=== PATIENT | female | born 2000 | race Caucasian/White ===

== ENCOUNTER 2020-08-06 16:55 | Outpatient (CLI) | payer OTHER ==
[2020-08-06] MEDS ORDERED: PRENATAL TABLE1 EAC1 PO (18:11)
[2020-08-07] MEDS ORDERED: NIFEDIPINE ER30 M1 PO (07:35)
== END 2020-08-07 08:12 | disposition home or self-care (01) ==
LOC: OBS/DEL 16:55
PROVIDERS: ATTEND Specialist
DX: O46.8X2 Other antepartum hemorrhage, second trimester (principal); O26.892 Other specified pregnancy related conditions, second trimester; R10.2 Pelvic and perineal pain; Z3A.20 20 weeks gestation of pregnancy

== ENCOUNTER 2020-11-28 12:05 | Inpatient (IN) | payer OTHER ==
[~2020-11-28] VITALS: Ht 165.1 cm; Wt 72.6 kg
[~2020-11-28 12:05] MED LIST: NIFEDIPINE ER30 M1 PO; PRENATAL TABLE1 EAC1 PO
[2020-12-01] MEDS ORDERED: ZITHROMAX200 MG PO (09:07)
== END 2020-12-01 12:50 | disposition home or self-care (01) | DRG 805 ==
LOC: LDR 12:05 → OB/GYN 18:39
PROVIDERS: ADMIT Specialist; ATTEND Specialist
PROC: 10E0XZZ Delivery of Products of Conception, External Approach (ICD-10-PCS; principal; 2020-11-28)
PROC: 0HQ9XZZ Repair Perineum Skin, External Approach (ICD-10-PCS; 2020-11-28)
PROC: 10907ZC Drainage of Amniotic Fluid, Therapeutic from Products of Conception, Via Natural or Artificial Opening (ICD-10-PCS; 2020-11-28)
PROC: 4A1HXFZ Monitoring of Products of Conception, Cardiac Rhythm, External Approach (ICD-10-PCS; 2020-11-28)
DX: O60.14X0 Preterm labor third trimester with preterm delivery third trimester, not applicable or unspecified (principal); O75.3 Other infection during labor; B96.0 Mycoplasma pneumoniae [M. pneumoniae] as the cause of diseases classified elsewhere; O99.12 Other diseases of the blood and blood-forming organs and certain disorders involving the immune mechanism complicating childbirth; D72.829 Elevated white blood cell count, unspecified; Z37.0 Single live birth; O70.0 First degree perineal laceration during delivery; Z3A.36 36 weeks gestation of pregnancy

== ENCOUNTER 2022-02-12 13:30 | Inpatient (IN) | payer OTHER ==
[~2022-02-12] VITALS: Ht 165.1 cm; Wt 2.7 kg
[~2022-02-12 13:30] MED LIST changes: +ZITHROMAX200 MG PO
[2022-02-16] MEDS ORDERED: IBUPROFEN800 MG PO (07:23)
== END 2022-02-16 13:15 | disposition home or self-care (01) | DRG 788 ==
LOC: EDSTATUS 13:30 → LDR 02-14 05:04 → OB/GYN 02-14 16:05
PROVIDERS: ADMIT Specialist; ATTEND Specialist
PROC: 4A1HXCZ Monitoring of Products of Conception, Cardiac Rate, External Approach (ICD-10-PCS; 2022-02-14)
PROC: 10D00Z1 Extraction of Products of Conception, Low, Open Approach (ICD-10-PCS; principal; 2022-02-14 10:45)
DX: O33.8 Maternal care for disproportion of other origin (principal); Z3A.39 39 weeks gestation of pregnancy; Z37.0 Single live birth; Z20.822 Contact with and (suspected) exposure to COVID-19